=== PATIENT | female | born 1975 | race Caucasian/White ===

== ENCOUNTER 2016-07-08 08:37 | Day surgery (SDC) | payer BC ==
--- NOTE | 2016-07-08 08:23 | HP ---
DATE OF SURGERY: 07/08/2016 HISTORY OF PRESENT ILLNESS: The patient is a 41 year-old had some multiple issues with her bowel worse over the past one to two months. She has had constipation most of her life, nausea, has irritable bowel syndrome, had bad cold in the past and the flu, had some left-sided aches and pains. No prior CT scan. PAST MEDICAL HISTORY: Chronic fatigue. Fibromyalgia. History of constipation and some diarrhea. PAST SURGICAL HISTORY: section. MEDICATIONS: Robaxin, Citalopram, ibuprofen, Tylenol, magnesium, vitamin D3, vitamin B12, stool softener, MiraLAX. ALLERGIES: DUST, POLLEN. FAMILY HISTORY: Mother with digestive problems, had problems with epigastric bypass. Cousin with Crohn's. Heart disease, diabetes. SOCIAL HISTORY: Half pack per day smoker, denies alcohol abuse. REVIEW OF SYSTEMS: Ten systems reviewed. No chest pain or palpitations other systems negative or noncontributory as above and per preadmission questionnaire. PHYSICAL EXAMINATION: GENERAL: No acute distress. HEENT: Sclerae nonicteric. NECK: No JVD. CHEST: Equal excursion, nonlabored breathing. CVS: Regular rate and rhythm. ABDOMEN: Soft. No peritoneal signs. Minimal tenderness in the left abdomen. EXTREMITIES: No significant edema. NEURO: Alert, moving extremities grossly symmetrically. No gross motor deficits noted. RECTAL: Deferred timed to endoscopy exam. LAB DATA AND TESTS: CT scan recently showed no acute intra-abdominal or pelvic process, a lot of fecal residue in the colon but no obvious obstruction or any obvious or beronica etiology of her aches and pains. IMPRESSION: History of left abdominal aches and pains, diarrhea, nausea, constipation of unclear etiology. I feel she would benefit from upper and endoscopy to rule out gastritis, ulcer disease, colitis or other etiology as source of her symptoms. She was shown the risk sheet and explained the procedure in detail but not limited to bleeding or infection, small risk of bowel injury or perforation possibly requiring open procedure, small risk of missed or nondiagnosis or incomplete exam possibly requiring barium enema, other studies or procedures, as well as inability to diagnose the etiology of her symptoms, might require other treatments, studies, or even other referral, change in diet. She understands and agrees to the planned procedure and will proceed with outpatient EGD and colonoscopy.
[~2016-07-08 08:37] MED LIST: DIPRIVAN 200 MG/20 ML IV ONE; Ketamine HCl 50 MG/ML IV ONE; Lactated Ringers 1,000 ML IV ONE; Lactated Ringers 1,000 ML IV SCH
[2016-07-08] MEDS ORDERED: VERSED 5 MG/5 ML IV ONE (09:49)
[2016-07-08] MEDS ORDERED: Versed 2 MG/2 ML Injection ONE (09:51)
[2016-07-08] MEDS ORDERED: Versed 2 MG/2 ML Injection IV ONE (10:00)
[2016-07-08] MEDS ORDERED: Lactated Ringers 1,000 ML IV ONE (11:14)
[2016-07-08 11:46] VITALS: O2SAT 100
[2016-07-08 12:07] VITALS: BP 119/76; PULSE 61
--- NOTE | 2016-07-09 07:45 | OP ---
SURGERY DATE/TIME: 07/08/2016 1020 PREOPERATIVE DIAGNOSES: 1) History of some left abdominal aches and pains. 2) History of alternating diarrhea and constipation. POSTOPERATIVE DIAGNOSES: 1) Healing prepyloric ulcer. 2) Mild gastritis. 3) Short segment of early gastroesophagitis versus early Suero's versus just normal variation of the gastroesophageal junction. 4) Poor bowel prep limiting the colon exam. 5) Small raised lesions versus early polyp or hyperplastic lesions sigmoid colon, rectosigmoid and rectum. 6) Internal and external hemorrhoids. 7) Mild diverticulosis. PROCEDURES: 1) EGD with cold biopsy of small bowel to evaluate for celiac sprue. 2) Cold biopsy of the antrum to evaluate for Helicobacter pylori at margin of prepyloric ulcer. 3) Cold biopsy distal esophagus to evaluate for short segment of Suero's esophagus versus normal variation. 4) Colonoscopy to terminal ileum. 5) Retrograde ileoscopy. 6) Cold biopsy terminal ileum. 7) Cold biopsy random colon biopsy to evaluate for microscopic colitis. 8) Hot biopsy removal of small raised lesions versus early polyp or hyperplastic lesion sigmoid colon, rectosigmoid colon and rectum. SURGEON: Dr. Pato Garcia. ANESTHESIA: MAC. ESTIMATED BLOOD LOSS: Minimal. INDICATIONS: As noted above. Risks and benefits explained in detail and not limited to and consent obtained. DESCRIPTION OF PROCEDURE AND FINDINGS: The patient was taken to the operating room. MAC anesthesia was induced. After official time out and no disagreement with planned procedure, the bite block positioned. Video gastroscope easily passed down the esophagus through the patent pylorus to the junction of the second and third portion of the duodenum. Given her symptoms, cold biopsy taken from small bowel to evaluate for celiac sprue. Good hemostasis noted. Otherwise there were no signs of any obvious ulcers or any other signs of inflammatory reaction. The scope pulled back into the stomach and had some mild gastritis. There was a punched out area that looked like a healing site with question of prepyloric ulcer. Cold biopsy taken of the margin of this to evaluate for Helicobacter pylori and for path. Good hemostasis noted. On retroflex, the gastroesophageal junction was snug against the scope. No signs of any significant hiatal hernia. The scope was straightened. Gastroesophageal junction noted to be about 39 cm with question of very short 0.5 cm or so question of early Suero's versus normal variation of the gastroesophageal junction versus distal gastroesophagitis. Cold biopsy taken. Good hemostasis noted. The remainder of the esophagus grossly unremarkable. The scope was withdrawn. The patient tolerated this part of the procedure well. Attention is then directed to colonoscopy. A digital rectal exam did not reveal any rectal masses. Video colonoscope passed up through the tortuous sigmoid, descending, transverse colon, ascending colon to the terminal ileum and then retrograde ileoscopy was performed. Terminal ileum is grossly unremarkable. Given her symptom complaints cold biopsy is taken to evaluate for inflammatory bowel disease or other etiology. The scope is then pulled back into the colon. Some random cold biopsies taken throughout the colon to evaluate for microscopic colitis. Prep overall was poor. Several areas of liquidy semi-solid stool, some solid stool limited the exam for potential small lesions. There were no signs of any large polyps, masses or obstructing lesions. She did have some diverticulosis in the left colon. She did have sigmoid colon with some very small raised lesions whether just simple early hyperplastic lesion versus early polyps were removed with hot biopsy forceps with brief bursts of cautery. Good hemostasis noted. This was again repeated in the rectosigmoid and rectum. Otherwise she had some internal and external hemorrhoids. Otherwise there are no signs of any large polyps, masses or obstructing lesions. The findings were discussed with the family out in the waiting area. I will see her back in the office to go over the results next week.
== END 2016-07-08 12:15 | disposition home or self-care (01) ==
LOC: SDC 08:37
PROVIDERS: ATTEND Surgery
PROC: 0DB88ZX Excision of Small Intestine, Via Natural or Artificial Opening Endoscopic, Diagnostic (ICD-10-PCS; principal; 2016-07-08)
PROC: 0DB38ZX Excision of Lower Esophagus, Via Natural or Artificial Opening Endoscopic, Diagnostic (ICD-10-PCS; 2016-07-08)
PROC: 0DB68ZX Excision of Stomach, Via Natural or Artificial Opening Endoscopic, Diagnostic (ICD-10-PCS; 2016-07-08)
PROC: 0DBN8ZX Excision of Sigmoid Colon, Via Natural or Artificial Opening Endoscopic, Diagnostic (ICD-10-PCS; 2016-07-08)
PROC: 0DBB8ZX Excision of Ileum, Via Natural or Artificial Opening Endoscopic, Diagnostic (ICD-10-PCS; 2016-07-08)
PROC: 0DBP8ZX Excision of Rectum, Via Natural or Artificial Opening Endoscopic, Diagnostic (ICD-10-PCS; 2016-07-08)
DX: K25.9 Gastric ulcer, unspecified as acute or chronic, without hemorrhage or perforation (principal); K29.70 Gastritis, unspecified, without bleeding; K20.9 Esophagitis, unspecified; K22.70 Barrett's esophagus without dysplasia; K63.9 Disease of intestine, unspecified; K64.4 Residual hemorrhoidal skin tags; K64.8 Other hemorrhoids; K57.90 Diverticulosis of intestine, part unspecified, without perforation or abscess without bleeding; K59.00 Constipation, unspecified; R19.7 Diarrhea, unspecified; Z79.899 Other long term (current) drug therapy; Z72.0 Tobacco use
CPT/HCPCS: 00740; 00810; 36415; 88305; J2250; J2704

== ENCOUNTER 2017-08-27 09:20 | Day surgery (SDC) | payer OTHER ==
[2017-08-27] MEDS ORDERED: LIDOCAINE HCL 2% 100 MG/5 ML IJ ONE (09:21)
[2017-08-27] MEDS ORDERED: XYLOCAINE-MPF 1% 5ML SDV IJ ONE (09:21)
[2017-08-27] MEDS ORDERED: DIPRIVAN 200 MG/20 ML IV ONE (09:21)
[2017-08-27] MEDS ORDERED: Marcaine 0.5% SDV 10 ML IJ ONE (09:21)
[2017-08-27] MEDS ORDERED: Lactated Ringers 1,000 ML IV ONE (11:38)
--- NOTE | 2017-08-27 12:06 | XRAY ---
Indication: Right C4-C5 facet MBB. Intraoperative fluoroscopy was provided for 1 minute 9 second. 5 digital spot images submitted for interpretation demonstrates posterior spinal needle tip projecting just right lateral to the C4-C5 level on the last image. Correlate with intraoperative findings/report.
--- NOTE | 2017-08-28 08:14 | OP ---
DATE OF PROCEDURE: 08/27/2017 1040 SURGEON: Abisai Clark D.O. PREOPERATIVE DIAGNOSIS: Degenerative cervical spine disease, neck pain. POSTOPERATIVE DIAGNOSIS: Degenerative cervical spine disease, neck pain. PROCEDURE PERFORMED: Right C5-C4 medial branch block under fluoroscopic guidance. DESCRIPTION OF THE PROCEDURE: The patient was taken to the operating room and placed in the prone position on the table. Skin at the injection site was prepped and draped in sterile fashion. Under fluoroscopy, bony anatomy of the targeted injection site was visualized. Induction agent was given as per anesthesia while vital signs were monitored. Local anesthetic agent of 0.5 cc of 1% Lidocaine was introduced to anesthetize the skin and the subcutaneous tissue through the injection site. Under fluoroscopic guidance, a #20 gauge standard spinal needle was advanced into the target medial branch through the oblique approach. 0.5 cc of 1% preservative-free Lidocaine and 0.5 cc of 0.25% preservative free Marcaine were injected into each of the targeted medial branch nerve. After the needle was being removed, the skin was cleansed with alcohol and then a bandage was applied. No complications or adverse consequences were observed. The patient was returned to the holding area until stabilized before discharge to home The preoperative pain level 9 out of 10 and postoperative pain level 7 out of 10. The patient will be followed up within ten days after the injection for re-evaluation.
--- NOTE | 2017-08-28 12:00 | XRAY ---
1 minute and 9 seconds for fluoroscopy used in surgery for right C4-C5 facet MBB.
== END 2017-08-27 11:40 | disposition home or self-care (01) ==
LOC: SDC-PAIN 09:20
PROVIDERS: ATTEND Internal Medicine
DX: M46.92 Unspecified inflammatory spondylopathy, cervical region (principal); M48.02 Spinal stenosis, cervical region; M50.321 Other cervical disc degeneration at C4-C5 level; M50.322 Other cervical disc degeneration at C5-C6 level; M50.323 Other cervical disc degeneration at C6-C7 level
CPT/HCPCS: 64490; 64491; 72020; 77003; J2704